=== PATIENT | male | born 1935 | race Caucasian/White ===

== ENCOUNTER → 2016-09-08 | Day surgery (SDC) | payer MEDICARE, BC ==
[~2016-09-08] MED LIST: ACETAMINOPHEN/HYDROcodone 325 MG/5 MG TAB ONE; BUPIVACAINE/EPINEPHRINE 0.25% PF 30 ML VIAL ONE; LACTATED RINGER'S 1000 ML INJ 1,000 ML ONE; MIDAZOLAM HCL 2 MG/2 ML VIAL ONE; NEOMYCIN/POLYMYXIN/BACITRACIN OINT 15 GM TUBE ONE; ONDANSETRON HCL 4 MG/2 ML VIAL IV PUSH ONE; PROPOFOL 200 MG/20 ML AMP IV ONE; ceFAZolin 2 GM PREMIX 50 ML ONE
--- NOTE | 2016-09-08 10:45 | TN ---
cc: SWAPNIL MONIQUE M.D. DATE OF SURGERY 09/08/2016 PREOPERATIVE DIAGNOSIS Symptomatic umbilical hernia. POSTOPERATIVE DIAGNOSIS Symptomatic umbilical hernia. PROCEDURE PERFORMED Umbilical hernia repair with mesh. SURGEON Swapnil Monique MD ANESTHESIA General LMA. COMPLICATIONS None. INDICATIONS FOR PROCEDURE Mr. Crooks is a pleasant 80-year-old gentleman who had a symptomatic umbilical hernia. He has seen and evaluated in the office and offered elective repair. The risks and benefits of repair with mesh was discussed with him and he was agreeable. DETAILS The patient was identified, brought to the operating room and placed supine on the operating table. After adequate general anesthesia, he achieved LMA. The anterior abdomen was prepped and draped in a standard surgical fashion. The infraumbilical space was anesthetized with 0.25% Marcaine. Infraumbilical incision was made. Dissection was carried down through subcutaneous tissue, identifying the umbilical stalk. Umbilical stalk was then dissected circumferentially. Hernia sac was then carefully dissected off the underside of the umbilical skin. Hernia sac was then reduced back in the abdominal cavity without difficulty. The fascial defect was then dissected out circumferentially. Attention was now directed to closure. Closure was accomplished using a two-layer technique. First the fascia was reapproximated primarily using a 0 Prolene suture interrupted x 4. Once this was accomplished, the fascia was then cleaned off about 1 cm distal on each side. Four stay sutures were then placed in the four corners of the fascia and an onlay mesh was placed and secured using a 2-0 Prolene suture. The mesh was also secured on the midpoint of the superior and inferior border. With this the defect was completely covered in two layers. The wound was copiously irrigated with normal saline solution. Additional local anesthetic was then injected into the abdominal wall fascia. Umbilical stalk was then tacked down to the abdominal fascia using a 3-0 Vicryl suture. The subcutaneous tissues was closed with 3-0 Vicryl and the skin was closed with a 4-0 Vicryl. The patient tolerated the suture well, was awakened and brought to Recovery in stable condition. MD DORIAN Todd/SONALI /10:18 AM /10:40 AM
== END | disposition home or self-care (01) ==
LOC: ESDC 07:38
PROVIDERS: ATTEND Surgery Trauma Surgery
DX: K42.9 Umbilical hernia without obstruction or gangrene (principal)
CPT/HCPCS: 00750; 49585; C1781; J0690; J2250; J2405; J3010; J7120